=== PATIENT | female | born 1970 | race Caucasian/White ===

== ENCOUNTER 2024-11-19 15:32 | Outpatient (AMB) | payer OTHER, MEDICAID, SELFPAY ==
--- NOTE | 2024-11-19 15:39 | MHC.OFFVIS ---
Vital Signs 11/19/24 15:42 Height 5 ft Weight 240 lb 11.916 oz BMI 47.0 BP 108/82 Blood Pressure Location Rt brachial Position Sitting Pulse 74 Pulse Source Pulse Oximeter Pulse Oximetry (%) 97 Oxygen Delivery Method Room Air Intake Visit Reasons: Partially empty sella Intake Note: New patient externally referred by PCP for partially Empty Sella. Boomboat Operator Required: No Accompanied by: Self / Same As Patient Allergies prednisone Allergy (Unknown, Verified 11/19/24 15:44) Anaphylaxis acetaminophen (From Vicodin) Adverse Reaction (Unknown, Verified 11/19/24 15:44) Nausea adhesive tape Adverse Reaction (Unknown, Verified 11/19/24 15:44) Unknown gabapentin Adverse Reaction (Unknown, Verified 11/19/24 15:44) Confusion hydrocodone (From Vicodin) Adverse Reaction (Unknown, Verified 11/19/24 15:44) Nausea nortriptyline Adverse Reaction (Unknown, Verified 11/19/24 15:44) Headache oxycodone (From Percocet) Adverse Reaction (Unknown, Verified 11/19/24 15:44) Nausea pregabalin (From Lyrica) Adverse Reaction (Unknown, Verified 11/19/24 15:44) Swelling hands and feet HPI Comments Details: This is a 54-year-old white female sent to endocrinology for 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 Patient had an MRI which showed the presence of partial empty sella syndrome.. She also has a history of Arlene's thyroiditis and recently on elevated TSH . She denies any symptoms of adrenal insufficiency. She denies any breast discharge. She is currently perimenopausal. She denies any symptoms of acromegaly.Describes sx of ocular migraines? Poor appetite with some wt loss . She currently not sees a neurologist. Saw optho Dr. French did visual quiroz. The patient is a 54-year-old female presenting with partial empty sella syndrome. She was referred after an MRI and CT scan conducted in the [facility] revealed this condition. The patient reports intermittent loss of vision, which comes and goes, and has not seen a neurologist for this issue. The patient has bilateral papilledema and bleeding behind the right eye, indicating increased intracranial pressure. She has been evaluated by an flight communications specialist, Dr. Meier, in the [facility], who conducted visual field testing. The patient has a history of Arlene's thyroiditis and is on medication for this condition. Her TSH levels were noted to be slightly elevated, leading to an adjustment in her medication dosage. She experiences headaches that are intermittent and has been experiencing these for a few years. The headaches are accompanied by episodes where everything starts throbbing in her head, affecting her hearing and vision, lasting one to five minutes. These episodes have been occurring for the last couple of years and are suggestive of ocular migraines. The patient reports excessive sweating, which is a new symptom, despite a previous diagnosis of impaired ability to sweat. She has not experienced any enlargement of hands or feet. The patient has lost 32 pounds recently, attributed to a combination of intentional weight loss and stress, but reports a lack of appetite. She has a history of vitamin D deficiency and has been advised to take vitamin D supplements, especially given the lack of sunlight in the [facility] during winter. . [facility] Medical History (Updated 11/19/24 @ 15:49 by Howard Logan MD) Primary empty sella syndrome Surgical History History of surgery Hx of cholecystectomy Hx of total hysterectomy Family History Mother Malignant tumor of breast Hx of myocardial infarction Malignant neoplasm of urinary bladder Parkinson disease Sister Disorder of thyroid gland Multiple myeloma Maternal Grandmother Malignant tumor of breast Paternal Grandmother Neoplasm of ovary Social History Alcohol intake: former Patient Tobacco Use Status: Current someday Tobacco user Physical Exam Vital Signs: BMI result Body Mass Index 47.0 Const Other: No acromegalic features or cushingoid features. Thyroid gland is normal size weighs about 15 g. There was no visual field defect by gross confrontation Assessment & Plan Assessment & Plan (1) Primary empty sella syndrome: Code(s): E23.0 - Hypopituitarism Category: Medical Plan: This is a 54-year-old white female with a history of partial empty sella syndrome found on MRI. There was no clear visualization of pituitary adenoma. Most likely a physiologic variant on MRI but will rule out hormonal deficiency.Thyroid axis is intact by virtue of having a elevated TSH. She had a normal basic metabolic panel suggesting the absence of diabetes insipidus We will check a.m. cortisol, prolactin, IGF-1, LH and FSH. Patient should follow up with Neurology. 1. Partial empty sella syndrome Further imaging with an MRI focused on the pituitary gland using gadolinium contrast is recommended to rule out any pituitary adenomas. Referral to a neurosurgeon for expert evaluation is advised, particularly at [facility]. 2. Bilateral papilledema Evaluation by a neurologist is necessary to assess the need for further intervention. Consideration of pseudotumor cerebri as a differential diagnosis is necessary. We will either make referral to neurologist in the [facility] or neurosurgeon can make referral to neurologist at [facility] 3. Arlene's thyroiditis Continued monitoring of thyroid function tests is necessary to ensure adequate management following the increase in levothyroxine dosage. This can be done by patient's primary care provider During the consultation, I discussed the findings of the MRI and CT scans, which revealed partial empty sella syndrome. I explained the need for further imaging with an MRI focused on the pituitary gland using gadolinium contrast to rule out any pituitary adenomas. We discussed the potential referral to a neurosurgeon at [facility] for specialized evaluation. I also addressed the patient's bilateral papilledema and the importance of seeing a neurologist to assess the need for further intervention, considering pseudotumor cerebri as a differential diagnosis. We reviewed the management of Arlene's thyroiditis, including the recent adjustment in levothyroxine dosage due to elevated TSH levels. I advised on the continuation of vitamin D supplementation to address the deficiency, especially during the winter months in the [facility]. We also discussed the patient's ocular migraines and excessive sweating, noting the need for further evaluation and potential management strategies. - Schedule an MRI focused on the pituitary gland with gadolinium contrast. - Follow up with a neurosurgeon at [facility] for evaluation. - Consult a neurologist to assess bilateral papilledema and consider pseudotumor cerebri. - Continue taking levothyroxine as prescribed and monitor thyroid function tests. - Maintain vitamin D supplementation, especially during the winter months. - Monitor symptoms of ocular migraines and report any changes. - The patient had an opportunity to ask questions regarding treatment plan. The patient expressed understanding and agreeme Patient was informed and verbally consented to the use of an ambient scribe for clinic note documentation during this visit. Orders: Orders Cortisol Random Today E23.0 - Hypopituitarism Prolactin Today E23.0 - Hypopituitarism IGF-1 (Somatomedin C) Today E23.0 - Hypopituitarism Lutenizing Hormone Today E23.0 - Hypopituitarism Follicle Stimulating Hormone Today E23.0 - Hypopituitarism MR head/brain wo/w con Today E23.0 - Hypopituitarism Referrals Neurosurgery Referral E23.0 - Hypopituitarism Coding Level of Care Code New Pt Level 4 (52927) Diagnoses Primary empty sella syndrome E23.0
[2024-11-19 15:42] VITALS: BP 108/82; PULSE 74; O2SAT 97; BMI 47.0
--- OUTSIDE RECORDS SUMMARY | 2024-11-19 16:21 | XMS_ITS | Encounter Summary ---
Author Organization [facility] Address [address] [place] [address] [place] [phone] Phone Care Team Providers Care Cancellation Clerk Name Role Phone Juan Carlos Turcios MD Primary Care Provider [phone] Reason for Referral * Consultation (Elective) - Closed Specialty Diagnoses / Procedures Referred By Matt howell Referred To Contact Neurology Diagnoses Encounter for consultation System, Provider Not In, PhD [address] [address] Referral ID Status Reason Start Date Expiration Date Visits Re quested Visits Authorized [id number] Closed 12/08/2015 12/07/2016 1 1 Encounter Details Date Type Department Care Team (Latest Contact Info) Description 12/08/2015 Transcribe Orders [facility] [place] [address] [place] [address], [address] Floor, [address] [place] [address] Juan Carlos Turcios MD [address] [place] [address] Encounter for consultation (Primary Dx) Social History Tobacco Use Types Packs/Day Years Used Date Smoking Tobacco: Never Assessed Comments Unknown Sex and Gender Information Value Date Recorded Sex Assigned at Not on file Legal Sex Female 10:34 AM EDT Gender Identity Not on file Sexual Orientation Not on file documented as of this encounter Plan of Treatment Scheduled Referrals Name Type Priority Associated Diagnoses Orde r Schedule Ambulatory referral [place] [facility] [place] Out[place] Referral Routine Encounter for consultation Ordered: 12/08/2015 documented as of this encounter Visit Diagnoses Diagnosis Encounter for consultation- Primary documented in this encounter Care Teams Cancellation Clerk Relationship Specialty Start Date End Date Juan Carlos Turcios MD [address] [place] [address] PCP - General Family Medicine 11/08/15 documented as of this encounter Additional Source Comments The information contained in this document represents components of the legal health record. It is not the complete legal health record.[facility]
== END 2024-11-19 16:23 | disposition home or self-care (01) ==
LOC: HO.ENCR 15:32
PROVIDERS: PCP Family Medicine; Visit Provider Internal Medicine Endocrinology, Diabetes & Metabolism
DX: E23.0 Hypopituitarism (principal)
CPT/HCPCS: 99204

== ENCOUNTER → 2024-11-19 15:32 | Outpatient (BNVA) | payer MEDICAID, SELFPAY | PROVIDERS: PCP Family Medicine; Visit Provider Internal Medicine Endocrinology, Diabetes & Metabolism | DX: E23.0 Hypopituitarism (principal); E06.3 Autoimmune thyroiditis; H47.12 Papilledema associated with decreased ocular pressure | CPT/HCPCS: 99202 ==

== ENCOUNTER 2025-01-13 15:43 | Outpatient (AMB) | payer MEDICAID, SELFPAY ==
--- NOTE | 2025-01-13 15:44 | MHC.OFFVIS ---
Vital Signs 01/13/25 15:45 Height 5 ft Weight 233 lb 0.458 oz BMI 45.5 BP 118/72 Blood Pressure Location Lt brachial Position Sitting Pulse 79 Pulse Source Pulse Oximeter Pulse Oximetry (%) 97 Oxygen Delivery Method Room Air Intake Visit Reasons: Partially empty sella Intake Note: Patient present today for partially Empty Sella. Mobile Practice Lead Required: No Accompanied by: Self / Same As Patient Allergies prednisone Allergy (Unknown, Verified 01/13/25 15:48) Anaphylaxis acetaminophen (From Vicodin) Adverse Reaction (Unknown, Verified 01/13/25 15:48) Nausea adhesive tape Adverse Reaction (Unknown, Verified 01/13/25 15:48) Unknown gabapentin Adverse Reaction (Unknown, Verified 01/13/25 15:48) Confusion hydrocodone (From Vicodin) Adverse Reaction (Unknown, Verified 01/13/25 15:48) Nausea nortriptyline Adverse Reaction (Unknown, Verified 01/13/25 15:48) Headache oxycodone (From Percocet) Adverse Reaction (Unknown, Verified 01/13/25 15:48) Nausea pregabalin (From Lyrica) Adverse Reaction (Unknown, Verified 01/13/25 15:48) Swelling hands and feet Medication List - Last Reconciled 01/13/25 by Howard Logan MD diazepam 5 mg PO BID PRN folic acid 1 mg PO DAILY levothyroxine 200 mcg PO DAILY sertraline 100 mg PO DAILY venlafaxine ER 75 mg PO DAILY HPI Comments Details: This is a 54-year-old white female sent to endocrinology for 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 Patient had an MRI which showed the presence of partial empty sella syndrome.. She also has a history of Arlene's thyroiditis and recently on elevated TSH . She denies any symptoms of adrenal insufficiency. She denies any breast discharge. She is currently perimenopausal. She denies any symptoms of acromegaly.Describes sx of ocular migraines? Poor appetite with some wt loss . She currently not sees a neurologist. Saw optho Dr. French did visual quiroz. Notes from [facility] show the patient was urgently sent to the emergency room for papilledema. I do not have a copy of an MRI that was recently performed that was ordered [facility] She did not go for any biochemical testing of the pituitary such as IGF-1 level, prolactin, FSH, LH as previously ordered PFSH Medical History Primary empty sella syndrome Surgical History History of surgery Hx of cholecystectomy Hx of total hysterectomy Family History Mother Malignant tumor of breast Hx of myocardial infarction Malignant neoplasm of urinary bladder Parkinson disease Sister Disorder of thyroid gland Multiple myeloma Maternal Grandmother Malignant tumor of breast Paternal Grandmother Neoplasm of ovary Social History Alcohol intake: former Patient Tobacco Use Status: Current someday Tobacco user Physical Exam Vital Signs: Last Vital Signs Pulse 79 01/13/25 15:45 BP 118/72 01/13/25 15:45 Pulse Ox 97 01/13/25 15:45 Oxygen Delivery Method Room Air 01/13/25 15:45 BMI result Body Mass Index 45.5 Assessment & Plan Assessment & Plan (1) Primary empty sella syndrome: Code(s): E23.0 - Hypopituitarism Category: Medical Plan: This is a 54-year-old white female with a history of partial empty sella syndrome found on MRI. There was no clear visualization of pituitary adenoma. Most likely a physiologic variant on MRI but will rule out hormonal deficiency.Thyroid axis is intact by virtue of having a elevated TSH. She had a normal basic metabolic panel suggesting the absence of diabetes insipidus We will check a.m. cortisol, prolactin, IGF-1, LH and FSH. [facility] this [facility] She also should go for biochemical testing in the a.m. fasting. She also needs to have repeat MRI dedicate of the pituitary with gadolinium as previously ordered, we will also try to get notes from [facility] from emergency room visit Coding Level of Care Code Est Pt Level 3 (87003) Diagnoses Primary empty sella syndrome E23.0
[2025-01-13 15:45] VITALS: BP 118/72; PULSE 79; O2SAT 97; BMI 45.5
--- OUTSIDE RECORDS SUMMARY | 2025-01-13 18:21 | XMS_ITS | Encounter Summary ---
Author Organization [facility] Address [address] [place] [address] [place] [phone] Phone Care Team Providers Care Crisis Manager Name Role Phone Juan Carlos Turcios MD Primary Care Provider Reason for Referral * Consultation (Elective) - Closed Specialty Diagnoses / Procedures Referred By Matt howell Referred To Contact Neurology Diagnoses Encounter for consultation System, Provider Not In, PhD [address] [address] Referral ID Status Reason Start Date Expiration Date Visits Re quested Visits Authorized [id number] Closed 12/08/2015 12/07/2016 1 1 Encounter Details Date Type Department Care Team (Latest Contact Info) Description 12/08/2015 Transcribe Orders [facility] [place] Department of [place]rology [address] [place] [address], [address], [address] [place] [address] Juan Carlos Turcios MD [address] [place] [id number] Encounter for consultation (Primary Dx) Social History Tobacco Use Types Packs/Day Years Used Date Smoking Tobacco: Never Assessed Comments Unknown Sex and Gender Information Value Date Recorded Sex Assigned at Female 11/20/2024 11:17 AM EDT Legal Sex Female 10:34 AM EDT Gender Identity Female 11/20/2024 11:17 AM EDT Sexual Orientation Straight 11/20/2024 11 :17 AM EDT documented as of this encounter Plan of Treatment Scheduled Referrals Name Type Priority Associated Diagnoses Orde r Schedule Ambulatory referral to [facility] Neurology Outpatient Referral Routine Encounter for consultation Ordered: 12/08/2015 documented as of this encounter Visit Diagnoses Diagnosis Encounter for consultation- Primary documented in this encounter Care Teams Crisis Manager Relationship Specialty Start Date End Date Juan Carlos Turcios MD [address] [place] [address] PCP - General Family Medicine 11/08/15 documented as of this encounter Additional Source Comments The information contained in this document represents components of the legal health record. It is not the complete legal health record.[facility]
--- OUTSIDE RECORDS SUMMARY | 2025-01-13 18:21 | XMS_ITS | Clinical Summary ---
Author Organization [facility] Address [address] [place] [phone] Phone Care Team Providers Care Medical Accountant Name Role Phone Juan Carlos Turcios MD Primary Care Provider [phone] Allergies Active Allergy Reactions Criticality Noted Date Comments Hydrocodone Bitartrate GI Upset High 02/11/2016 Oxycodone 05/12/2016 Medications sertraline (ZOLOFT) 100 MG tablet Take 100 mg by mouth daily. Active topiramate (TOPAMAX) 200 MG tablet Take 200 mg by mouth 2 (two) times a day. Active levothyroxine (SYNTHROID, LEVOTHROID) 200 MCG tablet Take 200 mcg by mouth daily. Active levothyroxine (SYNTHROID,LEVO THROID) 25 MCG tablet Take 25 mcg by mouth daily. Active ERGOCALCIFEROL, VITAMIN D2, (VITAMIN D2 ORAL) Take 125 mg by mouth every 7 days. Active diazePAM (VALIUM) 5 MG tablet Take 5 mg by mouth every 6 (six) hours as needed for anxiety. Active nortriptyline (PAMELOR) 10 MG capsule Take one tablet nightly for a week. If tolerated, continue on two tablets nightly. 60 capsule 5 6 Active Additional Information Patient not taking.Reported on 05/12/2016 B-complex with vitamin C tablet Take 1 tablet by mouth daily. Active MAGNESIUM ORAL Take by mouth daily. Active cholestyramine (QUESTRAN) 4 gram packet Take 1 packet by mouth daily. Active OXcarbazepine (TRILEPTAL) 150 MG tablet Take one tablet once daily for a couple of weeks. Then increase to one tablet twice daily. 60 tablet 5 7 Active Encounters Date Type Department Care Team Description 11/26/2024 Telephone [facility] [place] [address], [address], [address] [place] [address] Ghazala Christina RN from Last 3 Months Social History Tobacco Use Types Packs/Day Years Used Date Smoking Tobacco: Every Day Cigarettes Education Answer Date Recorded Are you interested in more education? Not on katherine e 07/28/2022 Are you concerned about learning? Not on file 07/28/2022 No 07/28/2022 No 07/28/2022 Digital Access Answer Date Recorded No 08/28/2022 No 08/28/2022 No 08/28/2022 Reliable internet access at home? Not on file 08/28/2022 Device with a working camera? Not on file Comments Unknown Sex and Gender Information Value Date Recorded Sex Assigned at Female 11/20/2024 11:17 AM EDT Legal Sex Female 10:34 AM EDT Gender Identity Female 11/20/2024 11:17 AM EDT Sexual Orientation Straight 11/20/2024 11 :17 AM EDT Last Filed Vital Signs Vital Sign Reading Time Taken Comments Blood Pressure 119/80 05/12/2016 3:53 PM EST Pulse 60 05/12/2016 3:53 PM EST Temperature 35.9 C (96.6 F) 05/12/2016 3:53 PM EST Respiratory Rate - - Oxygen Saturation 97% 05/12/2016 3:53 PM EST Inhaled Oxygen Concentration - - Weight 103.9 kg (229 lb) 03/07/2016 12:29 PM EST Height 152.4 cm (5') 03/07/2016 12:29 PM EST Body Mass Index 44.72 03/07/2016 12:29 PM EST Plan of Treatment Health Maintenance Due Date Last Done Comments Adult Td,Tdap Booster 1972 LIPID PANEL 1972 TSH LEVEL 1972 DEPRESSION SCREENING 1984 SMOKING Hx and SMOKELESS TOB ACCO SCREENING 02/28/1985 HEPATITIS C SCREENING 02/28/1990 HIV ONE-TIME SCREENING (18-6 5 YEARS) 02/28/1990 PNEUMOCOCCAL VACCINES (50+ y ears) (1 of 2 - PCV) 02/28/1991 PAP SMEAR 02/28/1993 MAMMOGRAM 2012 COLOGUARD 02/28/2017 COLONOSCOPY 02/28/2017 COLORECTAL CANCER SCREENING 02/28/2017 FIT TEST 02/28/2017 FOBT 02/28/2017 SIGMOIDOSCOPY 02/28/2017 VIRTUAL COLONOSCOPY 02/28/2017 ZOSTER VACCINES (1 of 2) 02/28/2022 INFLUENZA VACCINE (#1) 2024 COVID-19 VACCINE (2 - 2024-2 6 season) 2024 07/03/2020 RSV VACCINE (1 - 1-dose 75+ series) 02/28/2047 HEPATITIS A VACCINES Aged Out No long er eligible based on patient's age to complete this topic HIB VACCINES Aged Out No longer eligi ble based on patient's age to complete this topic MENINGOCOCCAL VACCINES (ACWY) Aged Out No longer eligible based on patient's age to complete this topic MENINGOCOCCAL VACCINES (B) Aged Out N o longer eligible based on patient's age to complete this topic Medical Devices Not on file Insurance [place] [address] [place] [address] Care Teams Medical Accountant Relationship Specialty Start Date End Date Juan Carlos Turcios MD [address] [place] [address] [place] [phone] PCP - General Family Medicine 11/08/15 Additional Source Comments The information contained in this document represents components of the legal health record. It is not the complete legal health record.[facility]
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
== END 2025-01-13 16:17 | disposition home or self-care (01) ==
LOC: HO.ENCR 15:44
PROVIDERS: PCP Family Medicine; Visit Provider Internal Medicine Endocrinology, Diabetes & Metabolism
DX: E23.0 Hypopituitarism (principal)
CPT/HCPCS: 99213

== ENCOUNTER → 2025-01-13 15:43 | Outpatient (BNVA) | payer MEDICAID, SELFPAY | PROVIDERS: PCP Family Medicine; Visit Provider Internal Medicine Endocrinology, Diabetes & Metabolism | DX: E23.0 Hypopituitarism (principal) | CPT/HCPCS: 99212 ==

== ENCOUNTER 2025-02-08 15:08 | Outpatient (REF) | payer MEDICAID, SELFPAY ==
--- OUTSIDE RECORDS SUMMARY | 2025-02-08 15:13 | XMS_ITS | Clinical Summary ---
Author Organization [facility] Address [address] [place] [id number] Phone Care Team Providers Care Flavor Tank Tender Name Role Phone Juan Carlos Turcios MD Primary Care Provider Allergies Active Allergy Reactions Criticality Noted Date [...] Encounters Date Type Department Care Team Description 01/23/[address] [facility] Neurosurgery [address], [address], [address] [place] [address] Guera Miller MD 11/26/[address] [facility] Neurosurgery [address], [address], [address] [place] [address] Ghazala Christina RN from Last 3 Months [...] topic Medical Devices Not on file Insurance [facility] [place] Care Teams Flavor Tank Tender Relationship Specialty Start Date End Date Juan Carlos Turcios MD [address] [place] [address] [place] [address] PCP - General Family Medicine 11/08/15 Additional Source Comments The information contained in this document represents components of the legal health record. It is not the complete legal health record.[facility]
--- OUTSIDE RECORDS SUMMARY | 2025-02-08 15:13 | XMS_ITS | Encounter Summary ---
Author Organization [facility] Address [address] [place] [address] [place] [id number] Phone Care Team Providers Care Software Installation Engineer Name Role Phone Juan Carlos Turcios MD Primary Care Provider Reason for Referral * Consultation (Elective) - Closed Specialty Diagnoses / Procedures Referred By Matt howell Referred To Contact Neurology Diagnoses Encounter for consultation System, Provider Not In, PhD [address] [address] Referral ID Status Reason Start Date Expiration Date Visits Re quested Visits Authorized [id number] Closed 12/08/2015 12/07/2016 1 1 Encounter Details Date Type Department Care Team (Latest Contact Info) Description 12/08/2015 Transcribe Orders [facility] Department of Neurology [address] [place] [address], [address] Floor, [address] [place] [address] Juan Carlos Turcios MD [address] [place] [address] Encounter for consultation (Primary Dx) Social History [...] Orde r Schedule Ambulatory referral to [facility] Neurology Outpatient Referral Routine Encounter for consultation Ordered: 12/08/2015 documented as of this encounter Visit Diagnoses Diagnosis Encounter for consultation- Primary documented in this encounter Care Teams Software Installation Engineer Relationship Specialty Start Date End Date Juan Carlos Turcios MD [address] [place] [phone] PCP - General Family Medicine 11/08/15 documented as of this encounter Additional Source Comments The information contained in this document represents components of the legal health record. It is not the complete legal health record.[facility]
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
== END 2025-02-08 15:09 | disposition home or self-care (01) ==
LOC: HO.MRI 15:08
PROVIDERS: PCP Family Medicine; Visit Provider Internal Medicine Endocrinology, Diabetes & Metabolism
DX: Z13.89 Encounter for screening for other disorder (principal)

== ENCOUNTER 2025-02-25 15:41 | Outpatient (REF) | payer MEDICAID, SELFPAY ==
--- NOTE | ~2025-02-25 | MR_ITS ---
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 TECHNIQUE: Multiplanar, multisequence MRI of the brain was obtained before and after the intravenous administration of 5 cc of contrast gadolinium Gadavist. FINDINGS: Sella: The pituitary gland is thin. Homogeneous enhancement, without discrete mass. Infundibulum is midline. No mass effect on the optic nerves or optic chiasm. Cavernous sinuses are normal. Brain parenchyma: No shift of midline structures. No evidence of acute infarct, Bennie parenchymal hemorrhage or mass lesion. No abnormal parenchymal enhancement. Ventricles/extra-axial CSF spaces: No hydrocephalus. No extra-axial fluid collection. Extracranial structures: Flow voids of the arteries in the skull base are preserved. Paranasal sinuses are clear. Moderate amount of right mastoid effusion. Left mastoid air cells are clear. MR/MR head/brain wo/w con IMPRESSION: 1. No pituitary mass. 2. Unremarkable brain parenchyma. 3. Right mastoid effusion. Electronically signed by: Clem Adhikari MD 02/25/2025 05:42 PM EST
--- OUTSIDE RECORDS SUMMARY | 2025-02-25 17:52 | XMS_ITS | Encounter Summary ---
Author Organization [facility] Address [address] [place] [address] [place] [address] Phone Care Team Providers Care Land Department Head Name Role Phone Juan Carlos Turcios MD Primary Care Provider Reason for Referral * Consultation (Elective) - Closed Specialty Diagnoses / Procedures Referred By Matt howell Referred To Contact Neurology Diagnoses Encounter for consultation System, Provider Not In, PhD [address] [address] Referral ID Status Reason Start Date Expiration Date Visits Re quested Visits Authorized [id number] Closed 12/08/2015 12/07/2016 1 1 Encounter Details Date Type Department Care Team (Latest Contact Info) Description 12/08/2015 Transcribe Orders [facility] Department of Neurology [address] [place] [address], 8th Floor, [address] [place] [address] Juan Carlos Turcios MD [address] [place] [address] Encounter for consultation (Primary Dx) [...] Diagnoses Orde r Schedule Ambulatory referral to [facility] Neurology Outpatient Referral Routine Encounter for consultation Ordered: 12/08/2015 documented as of this encounter Visit Diagnoses Diagnosis Encounter for consultation- Primary documented in this encounter Care Teams Land Department Head Relationship Specialty Start Date End Date Juan Carlos Turcios MD [address] [place] [address] PCP - General Family Medicine 11/08/15 documented as of this encounter Additional Source Comments The information contained in this document represents components of the legal health record. It is not the complete legal health record.[facility]
--- OUTSIDE RECORDS SUMMARY | 2025-02-25 17:52 | XMS_ITS | Clinical Summary ---
Author Organization [facility] Address [address] [place] [address] Phone Care Team Providers Care Duct Installer Name Role Phone Juan Carlos Turcios MD [...] Type Department Care Team Description 01/23/[address] [facility] [place] [address] [facility], 5th Floor, [address] [place] [address] Guera Miller MD 11/26/[address] [facility] [place] [address] [facility], 7th Floor, [address] [place] [address] Ghazala Christina RN from Last 3 Months [...] topic Medical Devices Not on file Insurance [facility] [place] Care Teams Duct Installer Relationship Specialty Start Date End Date Juan Carlos Turcios MD [address] [place] [address] [place] [address] PCP - General Family Medicine 11/08/15 Additional Source Comments The information contained in this document represents components of the legal health record. It is not the complete legal health record.[facility]
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
== END 2025-02-25 15:42 | disposition home or self-care (01) ==
LOC: HO.MRI 15:41
PROVIDERS: PCP Family Medicine; Visit Provider Internal Medicine Endocrinology, Diabetes & Metabolism
DX: E23.0 Hypopituitarism (principal)
CPT/HCPCS: 70553; A9585

== ENCOUNTER → 2025-02-25 15:42 | Outpatient (BNV) | payer MEDICAID, SELFPAY | PROVIDERS: PCP Family Medicine; Visit Provider Radiology Body Imaging | DX: H74.8X1 Other specified disorders of right middle ear and mastoid (principal) | CPT/HCPCS: 70553 ==

== ENCOUNTER 2025-03-17 15:43 | Outpatient (AMB) | payer MEDICAID, SELFPAY ==
--- NOTE | 2025-03-17 15:47 | A.OFFVIS_ITS ---
Vital Signs 03/17/25 15:49 Height 5 ft Weight 221 lb 9.033 oz BMI 43.3 BP 110/74 Blood Pressure Location Rt brachial Position Sitting Pulse 85 Pulse Source Pulse Oximeter Pulse Oximetry (%) 95 Oxygen Delivery Method Room Air Intake Visit Reasons: f/u partial empty sellar syndrome Intake Note: Patient present today for partially Empty Sella. Stiff Straw Hat Washer Required: No Accompanied by: Self / Same As Patient Allergies prednisone Allergy (Unknown, Verified 03/17/25 15:49) Anaphylaxis acetaminophen (From Vicodin) Adverse Reaction (Unknown, Verified 03/17/25 15:49) Nausea adhesive tape Adverse Reaction (Unknown, Verified 03/17/25 15:49) Unknown gabapentin Adverse Reaction (Unknown, Verified 03/17/25 15:49) Confusion hydrocodone (From Vicodin) Adverse Reaction (Unknown, Verified 03/17/25 15:49) Nausea nortriptyline Adverse Reaction (Unknown, Verified 03/17/25 15:49) Headache oxycodone (From Percocet) Adverse Reaction (Unknown, Verified 03/17/25 15:49) Nausea pregabalin (From Lyrica) Adverse Reaction (Unknown, Verified 03/17/25 15:49) Swelling hands and feet HPI Comments Details: This is a 54-year-old white female sent to endocrinology for 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 Patient had an MRI which showed the presence of partial empty sella syndrome.. She also has a history of Arlene's thyroiditis and recently on elevated TSH . She denies any symptoms of adrenal insufficiency. She denies any breast discharge. She is currently perimenopausal. She denies any symptoms of acromegaly.Describes sx of ocular migraines? Poor appetite with some wt loss . Repeat MRI showed nl pituitary . Pituitary function such as gonadotropins, IGF- 1, cortisol nl with elevated TSH PFSH Medical History Primary empty sella syndrome Surgical History History of surgery Hx of cholecystectomy Hx of total hysterectomy Family History Mother Malignant tumor of breast Hx of myocardial infarction Malignant neoplasm of urinary bladder Parkinson disease Sister Disorder of thyroid gland Multiple myeloma Maternal Grandmother Malignant tumor of breast Paternal Grandmother Neoplasm of ovary Social History Alcohol intake: former Patient Tobacco Use Status: Current someday Tobacco user Physical Exam Vital Signs: Last Vital Signs Pulse 85 03/17/25 15:49 BP 110/74 03/17/25 15:49 Pulse Ox 95 03/17/25 15:49 Oxygen Delivery Method Room Air 03/17/25 15:49 BMI result Body Mass Index 43.3 Assessment & Plan Assessment & Plan (1) Primary empty sella syndrome: Code(s): E23.0 - Hypopituitarism Category: Medical Plan: This is a 54-year-old white female with a history of partial empty sella syndrome found on MRI. There was no clear visualization of pituitary adenoma. Most likely a physiologic variant on MRI but will rule out hormonal deficiency.Thyroid axis is intact by virtue of having a elevated TSH. She had a normal basic metabolic panel suggesting the absence of diabetes insipidus. Nl IGF-1 , cortisol There is no need for further endocrine f/u ofr w/u at this point. Pt will be returned to PCP and neurology and can return to endocrinology PRN Coding Level of Care Code Est Pt Level 3 (50338) Diagnoses Primary empty sella syndrome E23.0
[2025-03-17 15:49] VITALS: BP 110/74; PULSE 85; O2SAT 95; BMI 43.3
--- OUTSIDE RECORDS SUMMARY | 2025-03-17 19:50 | XMS_ITS | Clinical Summary ---
Author Organization [facility] Address [address] [place] [phone] Phone Care Team Providers Care Roll Forming Machine Set Up Mechanic Name Role Phone Juan Carlos Turcios MD [...] Type Department Care Team Description 01/23/2025 Telephone [facility] [address] [place] [address], 5th Floor, [address] [place] [address] Guera Miller MD from Last 3 Months Social History Tobacco [...] topic Medical Devices Not on file Insurance [employer] [place] [place] [address] Care Teams Roll Forming Machine Set Up Mechanic Relationship Specialty Start Date End Date Juan Carlos Turcios MD [address] [place] [id number] PCP - General Family Medicine 11/08/15 Additional Source Comments The information contained in this document represents components of the legal health record. It is not the complete legal health record.[facility]
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
--- OUTSIDE RECORDS SUMMARY | 2025-03-17 19:50 | XMS_ITS | Encounter Summary ---
Author Organization [facility] Address [address] [place] [address] [place] [address] Phone Care Team Providers Care Clinic Md Associate Name Role Phone Juan Carlos Turcios MD Primary Care Provider Reason for Referral * Consultation (Elective) - Closed Specialty Diagnoses / Procedures Referred By Matt howell Referred To Contact Neurology Diagnoses Encounter for consultation System, Provider Not In, PhD [address] [address] Referral ID Status Reason Start Date Expiration Date Visits Re quested Visits Authorized [id number] Closed 12/08/2015 12/07/2016 1 1 Encounter Details Date Type Department Care Team (Latest Contact Info) Description 12/08/2015 Transcribe Orders [facility] [address] [place] [address], 8th Floor, [address] [place] [address] Juan Carlos Turcios MD [address] [place] [address] Encounter for consultation (Primary Dx) [...] Diagnoses Orde r Schedule Ambulatory referral to [facility] Neurology Outpatient Referral Routine Encounter for consultation Ordered: 12/08/2015 documented as of this encounter Visit Diagnoses Diagnosis Encounter for consultation- Primary documented in this encounter Care Teams Clinic Md Associate Relationship Specialty Start Date End Date Juan Carlos Turcios MD [address] [place] [address] PCP - General Family Medicine 11/08/15 documented as of this encounter Additional Source Comments The information contained in this document represents components of the legal health record. It is not the complete legal health record.[facility]
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
== END 2025-03-17 16:10 | disposition home or self-care (01) ==
LOC: HO.ENCR 15:44
PROVIDERS: PCP Family Medicine; Visit Provider Internal Medicine Endocrinology, Diabetes & Metabolism
DX: E23.0 Hypopituitarism (principal)
CPT/HCPCS: 99213

== ENCOUNTER → 2025-03-17 15:43 | Outpatient (BNVA) | payer MEDICAID, SELFPAY | PROVIDERS: PCP Family Medicine; Visit Provider Internal Medicine Endocrinology, Diabetes & Metabolism | DX: E23.0 Hypopituitarism (principal) | CPT/HCPCS: 99212 ==